=== PATIENT | female | born 1995 | race American Indian/Alaskan Native ===

== ENCOUNTER 2021-02-21 15:42 | Inpatient (IN) | payer OTHER ==
[2021-02-21 17:29] LABS: Hematocrit 35.1 % (30.3-42.9); Hemoglobin 11.6 gm/dl (10.1-14.3); Mean Corpuscular HGB Conc 33 % (30-34); Mean Corpuscular Volume 80 fl (79-97); Platelet Count 236 K/mm3 (140-440); Red Blood Count 4.38 M/mm3 (3.65-5.03); Red Cell Distribution Width 14.8 % (13.2-15.2)
[2021-02-21] MEDS ORDERED: ALBUTEROL 2.5 MG/3 ML NEBU IH ONE (17:40)
[2021-02-21 17:47] LABS: Alanine Aminotransferase 11 units/L (7-56); Uric Acid 7.4 mg/dL (3.5-7.6)
[2021-02-21] MEDS ORDERED: LACTATED RINGERS 500 ML IV ONE (17:51)
[2021-02-21] MEDS ORDERED: MAGNESIUM SULFATE 4 GM/100 ML BAG IV ONE (17:53)
[2021-02-21] MEDS ORDERED: BETAMET ACET/BETAMET NA PH 6 MG/ML INJ 5 ML MDV IM SCH (18:00)
[2021-02-21] MEDS: HYDROcodone/ACETAMINOPHEN 5-325 MG TAB PO PRN (18:12)
[2021-02-21] MEDS: hydrALAZINE 20 MG/1 ML INJ IV PRN ×3 (18:12→20:00)
[2021-02-21 18:40] LABS: Bilirubin,Urine NEG (Negative); Blood,Urine SM (Negative); Color,Urine Yellow (Yellow); Mucus,Urine FEW /HPF; Urobilinogen,Urine < 2.0 mg/dL (<2.0)
[2021-02-21 18:41] LABS: Protein,Urine >500 mg/dL (Negative)
--- NOTE | 2021-02-21 18:51 | Ultrasound Report ---
ULTRASOUND OBSTETRIC LIMITED ULTRASOUND BIOPHYSICAL PROFILE INDICATION / CLINICAL INFORMATION: wellbeing. COMPARISON: None available. FINDINGS: BREATHING MOVEMENT = 2 GROSS BODY MOVEMENT = 0 TONE = 2 QUALITATIVE AMNIOTIC FLUID VOLUME = 2 TOTAL BIOPHYSICAL SCORE = 6/8 AMNIOTIC FLUID INDEX (cm) = 7.1 PRESENTATION: Cephalic. HEART RATE (beats per minute): 146 ADDITIONAL FINDINGS: None. IMPRESSION: 1. Biophysical Score = 6/8 Signer Name: Jesús Ventura MD Signed: 02/21/2021 6:47 PM Workstation Name: [id number]
--- NOTE | 2021-02-21 21:11 | History and Physical Report ---
History of Present Illness Date of examination: 02/21/21 Date of admission: 02/21/21 16:51 Chief complaint: elevated blood pressure. History of present illness: Patient is a 25-year-old from [place] female primigravida last menstrual period 06/16/2020 EDC [id number]. She is 32 weeks . She does have several problems she is obese she has asthma controlled on albuterol her blood pressures have been elevated during this she has had a 24-hour urine was 83mg she has [facility] she has gestational diabetes controlled with diet only she has a history of herniated disc in her back being treated by orthopedic doctors. She is admitted today because of elevated blood pressure. At the office today her blood pressure was 185/106. She has a history of taking labetalol 200 mg p.o. twice daily daily at the office her blood type was A+ antibody screen was negative. Her Pap smear is nonimmune records her rubella was immune VDRL was nonreactive hepatitis B was negative HIV test was negative platelet count was 329,000 HSV 2 was negative gonorrhea and Chlamydia tests were negative trichomonas test was negative MSAFP was negative she had ultrasound at 6.4 weeks her hematocrit on 01/05/2021 was 36.4% . Her VDRL on 05/08/2021 was nonreactive HIV test on 01/05/2021 was also negative. Patient is several different medications during the . Family medical history shows a maternal grandmother had type 2 diabetes he has grandmother maternal aunt that had breast cancer. Past medical history also shows LGSIL on Pap smear she had a Nexplanon removed on 10/22/2016 she had a Nexplanon inserted in 2012. Menarche was [id number]. Social history shows shows that the patient is single and her weight is 271 pounds. History patient Steroids for the lung maturity this week before today. Patient is admitted for toxemia of possible induction of labor. She will be treated with magnesium sulfate. And will treat her with asthma which is a problem with respiratory therapy. Past History Past Medical History: asthma, diabetes, other (obesity, bulging disc in her back.) [employer] History: abnormal PAP smear Family/Genetic History: diabetes, cancer Social history: no significant social history - Obstetrical History Expected Date of Delivery: 04/14/21 Actual Gestation: 32 Week(s) 4 Day(s) : 1 Para: 0 Hx # Term Pregnancies: 0 Number of Pregnancies: 0 Spontaneous Abortions: 0 Induced : 0 Number of Living Children: 0 Medications and Allergies Allergies Allergy/AdvReac Type Severity Reaction Status Date / Time No Known Allergies Allergy Verified 02/19/21 17:49 Home Medications Medication Instructions Recorded Confirmed Last Taken Type Omeprazole 20 mg PO DAILY 02/21/21 02/21/21 02/20/21 History Vit-Fe Fumar-FA [ 1 tab PO QDAY 02/21/21 02/21/21 02/20/21 History Vitamin] labetaloL [Labetalol 200mg TAB] 200 mg PO BID 02/21/21 02/21/21 02/21/21 History Active Meds: Active Medications Hydrocodone Bitart/Acetaminophen (Hydrocodone/Acetaminophen 5-325 Mg Tab) 1 each PO Q4H PRN PRN Reason: Pain, Moderate (4-6) Last Admin: 02/21/21 18:12 Dose: 1 each Documented by: Albuterol (Albuterol 2.5 Mg/3 Ml Nebu) 2.5 mg IH TIDRT [facility] Betamethasone Acet/Betameth SodPhos (Betamet Acet/Betamet Na Ph 6 Mg/Ml Inj 5 Ml Mdv) 12 mg IM Q24H ONIEL Stop: 02/22/21 18:01 Hydralazine HCl (Hydralazine 20 Mg/1 Ml Inj) 10 mg IV Q30MIN PRN PRN Reason: Blood Pressure Last Admin: 02/21/21 20:00 Dose: 10 mg Documented by: Magnesium Sulfate (Magnesium Sulfate 40gm/1000ml) 40 gm in 1,000 mls @ 50 mls/hr IV DIRECT ONIEL Lactated Ringer's (Lactated Ringers) 1,000 mls @ 125 mls/hr IV DIRECT ONIEL Labetalol HCl (Labetalol 200 Mg Tab) 200 mg PO BID [facility] Multivitamins/Iron/Calcium ( [id number] Fumarate-Folic Acid Vit Tab) 1 each PO QDAY [facility] Review of Systems All systems: negative - Vital Signs Vital signs: Vital Signs Temp Pulse Resp BP Pulse Ox 98.5 F 85 20 223/112 99 02/21/21 16:06 02/21/21 16:06 02/21/21 16:06 02/21/21 16:06 02/21/21 16:06 Temp Pulse Resp BP Pulse Ox 98.5 F 114 H 18 129/72 99 02/21/21 16:06 02/21/21 20:59 02/21/21 18:15 02/21/21 20:58 02/21/21 20:59 - Physical Exam Breasts: Positive: deferred, normal Cardiovascular: Regular rate, Normal S1, Normal S2 Lungs: Positive: Clear to auscultation, Normal air movement Abdomen: Positive: normal appearance, soft, normal bowel sounds. Negative: distention, tenderness Genitourinary (Female): Positive: normal external genitalia Vulva: both: normal Vagina: Positive: normal moisture. Negative: discharge Cervix: Negative: lesion, discharge Uterus: Positive: normal size, enlarged, normal contour Adnexa: both: normal Anus/Rectum: Positive: normal perianal skin, heme negative. Negative: rectal mass, hemorrhoids Extremities: Positive: normal Deep Tendon Reflex Grade: Normal +2 - Obstetrical FHR: auscultation normal, category 1 Uterine Contraction Monitor Mode: Palpation Cervical Dilatation: 0 Cervical Effacement Percentage: 50 station: -2 Uterine Contraction Frequency (min): none Uterine Contraction Duration: na Uterine Contraction Pattern: Absent Uterine Tone Measurement Phase: Resting Results Result Diagrams: 02/21/21 17:00 02/21/21 17:00 Abnormal lab results 02/21/21 02/21/21 Range/Units 17:00 17:00 WBC 15.4 H (4.5-11.0) K/mm3 MCH 27 L (28-32) pg Creatinine 0.5 L (0.6-1.2) mg/dL Lactate Dehydrogenase 331 H (91-180) units/L All other labs normal. Assessment and Plan , Asthma gestational diabetes controlled with diet and herniated disc in her back.also, asthma. Plan stabilize the patient with magnesium sulfate IV and get better blood pressures. Possible induction in a.m.
[2021-02-22] MEDS ORDERED: MORPHINE 4 MG/1 ML INJ IV ONE (01:27)
[2021-02-22] MEDS ORDERED: AMPICILLIN/NS 2 GM/100 ML 2 GM/100 ML BAG IV ONE (03:42)
[2021-02-22] MEDS ORDERED: OXYTOCIN DRIP 30 UNITS/500 ML BAG IV SCH ×2 (04:00→18:00)
[2021-02-22] MEDS ORDERED: DINOPROSTONE 10 MG VAG SUPP VG ONE (04:01)
[2021-02-22] MEDS: ALBUTEROL 2.5 MG/3 ML NEBU IH SCH ×4 (04:52→21:33)
[2021-02-22] MEDS: MORPHINE 4 MG/1 ML INJ IV PRN ×2 (06:00→10:08)
[2021-02-22] MEDS ORDERED: ACETAMINOPHEN 500 MG TAB PO SCH (08:00)
[2021-02-22] MEDS ORDERED: ACETAMINOPHEN 500 MG TAB ONE (08:02)
[2021-02-22] MEDS: hydrALAZINE 20 MG/1 ML INJ IV PRN ×6 (08:07→22:54)
--- NOTE | 2021-02-22 09:38 | Consultation ---
Consult Note - Parent Education I met with parent(s) and discussed the following:: Need for NICU admission, Poss ible need for intubation and surfactant or other resp support, Temperature regulation, Head ultrasounds to evaluate IVH, Eye exams for ROP screening, Possible need for IV fluids/TPN and IV antibiotics, Possible need for umbilical lines, Importance of providing breast milk & encouraged pumping aft delivery (MOB is interested in ), Donor breast milk if baby meets criteria after , Slow feeding advancement and monitoring of tolerance. NG/OG feeds, Need to monitor for jaundice, Data for survival & survival without significant co-morbidities Parent(s) demonstrated understanding of all the information:: Yes Assessment and Plan - Assessment Gestation:: 32 Estimated Weight: N/A Baby's gender: Female Baby's name: Kenny Additional Comment: 25YO mother with 32 weeker, who presents with elevated blood pressure, GDM-diet controlled. She is currently on mag. and have received her 2nd dose of bethamethasone upon admission. - Plan Plan: Agree with Mag & steroids Will attend delivery Please call NICU with questions
[2021-02-22] MEDS: PRENATAL VIT27-FE FUMARATE-FOLIC ACID VIT TAB PO SCH (10:07)
--- NOTE | 2021-02-22 14:44 | Progress Note ---
Assessment and Plan , Asthma gestational diabetes controlled with diet and herniated disc in her back.also, asthma. Plan stabilize the patient with magnesium sulfate IV and get better blood pressures. Possible induction in a.m. INDUCTION WITH CERVIDIL TODAY, - Patient Problems (1) Toxemia in Current Visit: Yes Status: Acute (2) Obesity (BMI 30-39.9) Current Visit: Yes Status: Acute (3) Asthma Current Visit: Yes Status: Acute (4) Herniated intervertebral disc of lumbar spine Current Visit: Yes Status: Chronic Subjective Date of service: 02/22/21 Principal diagnosis: 32 weeks IUP,SEVERE TOXEMIA, OBESITY, GEST DM, HERNIATED DISC LOWER BACK Interval history: This patient has all of the above diagnoses and she has had antepartum steroids to benefit the baby this week. Because of her significantly elevated blood pressures and her obesity and gestational diabetes with the toxemia is felt that patient is best served with a induction of labor at this time. We will start with Cervidil and then progressed with IV Pitocin. Objective - Constitutional Vitals: Vital Signs - 12hr 02/22/21 02/22/21 02/22/21 02:43 02:44 02:49 Temperature Pulse Rate 111 H 110 H 109 H Pulse Rate [ Bilateral] Respiratory Rate Respiratory Rate [Bilateral ] Blood Pressure Blood Pressure [Left] O2 Sat by Pulse 93 92 91 Oximetry 02/22/21 02/22/21 02/22/21 02:54 02:55 02:59 Temperature Pulse Rate 108 H 108 H 113 H Pulse Rate [ Bilateral] Respiratory Rate Respiratory Rate [Bilateral ] Blood Pressure 139/69 Blood Pressure [Left] O2 Sat by Pulse 91 97 Oximetry 02/22/21 02/22/21 02/22/21 03:04 03:09 03:14 Temperature Pulse Rate 107 H 108 H 108 H Pulse Rate [ Bilateral] Respiratory Rate Respiratory Rate [Bilateral ] Blood Pressure Blood Pressure [Left] O2 Sat by Pulse 98 94 96 Oximetry 02/22/21 02/22/21 02/22/21 03:16 03:19 03:24 Temperature Pulse Rate 108 H 109 H 118 H Pulse Rate [ Bilateral] Respiratory Rate Respiratory Rate [Bilateral ] Blood Pressure Blood Pressure [Left] O2 Sat by Pulse 94 92 95 Oximetry 02/22/21 02/22/21 02/22/21 03:25 03:29 03:32 Temperature Pulse Rate 111 H 107 H 104 H Pulse Rate [ Bilateral] Respiratory Rate Respiratory Rate [Bilateral ] Blood Pressure 135/62 Blood Pressure [Left] O2 Sat by Pulse 95 94 Oximetry 02/22/21 02/22/21 02/22/21 03:34 03:39 03:44 Temperature Pulse Rate 104 H 105 H 109 H Pulse Rate [ Bilateral] Respiratory Rate Respiratory Rate [Bilateral ] Blood Pressure Blood Pressure [Left] O2 Sat by Pulse 93 93 94 Oximetry 02/22/21 02/22/21 02/22/21 03:49 03:51 03:54 Temperature Pulse Rate 107 H 107 H 111 H Pulse Rate [ Bilateral] Respiratory Rate Respiratory Rate [Bilateral ] Blood Pressure Blood Pressure [Left] O2 Sat by Pulse 94 94 96 Oximetry 02/22/21 02/22/21 02/22/21 03:55 03:59 04:04 Temperature Pulse Rate 109 H 106 H 109 H Pulse Rate [ Bilateral] Respiratory Rate Respiratory Rate [Bilateral ] Blood Pressure 135/63 Blood Pressure [Left] O2 Sat by Pulse 95 95 Oximetry 02/22/21 02/22/21 02/22/21 04:09 04:14 04:19 Temperature Pulse Rate 107 H 111 H 107 H Pulse Rate [ Bilateral] Respiratory Rate Respiratory Rate [Bilateral ] Blood Pressure Blood Pressure [Left] O2 Sat by Pulse 96 96 97 Oximetry 02/22/21 02/22/21 02/22/21 04:24 04:29 04:31 Temperature Pulse Rate 110 H 107 H 108 H Pulse Rate [ Bilateral] Respiratory Rate Respiratory Rate [Bilateral ] Blood Pressure 143/66 Blood Pressure [Left] O2 Sat by Pulse 98 98 Oximetry 02/22/21 02/22/21 02/22/21 04:34 04:39 04:44 Temperature Pulse Rate 110 H 109 H 109 H Pulse Rate [ Bilateral] Respiratory Rate Respiratory Rate [Bilateral ] Blood Pressure Blood Pressure [Left] O2 Sat by Pulse 98 98 98 Oximetry 02/22/21 02/22/21 02/22/21 04:49 04:53 04:54 Temperature Pulse Rate 112 H 109 H Pulse Rate [ 108 H Bilateral] Respiratory Rate Respiratory 18 Rate [Bilateral ] Blood Pressure Blood Pressure [Left] O2 Sat by Pulse 97 99 Oximetry 02/22/21 02/22/21 02/22/21 04:55 04:59 05:04 Temperature Pulse Rate 107 H 113 H 107 H Pulse Rate [ Bilateral] Respiratory Rate Respiratory Rate [Bilateral ] Blood Pressure 146/74 Blood Pressure [Left] O2 Sat by Pulse 98 98 Oximetry 02/22/21 02/22/21 02/22/21 05:09 05:14 05:19 Temperature Pulse Rate 116 H 109 H 112 H Pulse Rate [ Bilateral] Respiratory Rate Respiratory Rate [Bilateral ] Blood Pressure Blood Pressure [Left] O2 Sat by Pulse 98 98 98 Oximetry 02/22/21 02/22/21 02/22/21 05:24 05:26 05:29 Temperature Pulse Rate 111 H 109 H 114 H Pulse Rate [ Bilateral] Respiratory Rate Respiratory Rate [Bilateral ] Blood Pressure 171/77 Blood Pressure [Left] O2 Sat by Pulse 98 99 Oximetry 02/22/21 02/22/21 02/22/21 05:34 05:39 05:44 Temperature Pulse Rate 109 H 110 H 111 H Pulse Rate [ Bilateral] Respiratory Rate Respiratory Rate [Bilateral ] Blood Pressure Blood Pressure [Left] O2 Sat by Pulse 98 98 96 Oximetry 02/22/21 02/22/21 02/22/21 05:48 05:49 05:53 Temperature Pulse Rate 110 H 110 H 113 H Pulse Rate [ Bilateral] Respiratory Rate Respiratory Rate [Bilateral ] Blood Pressure Blood Pressure [Left] O2 Sat by Pulse 94 94 94 Oximetry 02/22/21 02/22/21 02/22/21 05:54 05:59 06:04 Temperature Pulse Rate 114 H 111 H 111 H Pulse Rate [ Bilateral] Respiratory Rate Respiratory Rate [Bilateral ] Blood Pressure Blood Pressure [Left] O2 Sat by Pulse 93 93 91 Oximetry 02/22/21 02/22/21 02/22/21 06:09 06:14 06:19 Temperature Pulse Rate 110 H 109 H 110 H Pulse Rate [ Bilateral] Respiratory Rate Respiratory Rate [Bilateral ] Blood Pressure Blood Pressure [Left] O2 Sat by Pulse 90 89 90 Oximetry 02/22/21 02/22/21 02/22/21 06:24 06:29 06:34 Temperature Pulse Rate 109 H 110 H 117 H Pulse Rate [ Bilateral] Respiratory Rate Respiratory Rate [Bilateral ] Blood Pressure Blood Pressure [Left] O2 Sat by Pulse 87 89 95 Oximetry 02/22/21 02/22/21 02/22/21 06:35 06:39 06:44 Temperature Pulse Rate 114 H 107 H 109 H Pulse Rate [ Bilateral] Respiratory Rate Respiratory Rate [Bilateral ] Blood Pressure Blood Pressure [Left] O2 Sat by Pulse 94 93 90 Oximetry 02/22/21 02/22/21 02/22/21 06:49 06:50 06:54 Temperature Pulse Rate 107 H 108 H 107 H Pulse Rate [ Bilateral] Respiratory Rate Respiratory Rate [Bilateral ] Blood Pressure Blood Pressure [Left] O2 Sat by Pulse 95 94 94 Oximetry 02/22/21 02/22/21 02/22/21 06:56 06:57 06:59 Temperature Pulse Rate 107 H 106 H 105 H Pulse Rate [ Bilateral] Respiratory Rate Respiratory Rate [Bilateral ] Blood Pressure 171/84 Blood Pressure [Left] O2 Sat by Pulse 94 93 Oximetry 02/22/21 02/22/21 02/22/21 07:04 07:09 07:14 Temperature Pulse Rate 109 H 107 H 117 H Pulse Rate [ Bilateral] Respiratory Rate Respiratory Rate [Bilateral ] Blood Pressure 179/101 Blood Pressure [Left] O2 Sat by Pulse 95 96 98 Oximetry 02/22/21 02/22/21 02/22/21 07:15 07:16 07:19 Temperature 98.9 F Pulse Rate 107 H 110 H 109 H Pulse Rate [ Bilateral] Respiratory Rate Respiratory Rate [Bilateral ] Blood Pressure 156/78 Blood Pressure 156/78 [Left] O2 Sat by Pulse 96 Oximetry 02/22/21 02/22/21 02/22/21 07:24 07:29 07:34 Temperature Pulse Rate 107 H 107 H 107 H Pulse Rate [ Bilateral] Respiratory Rate Respiratory Rate [Bilateral ] Blood Pressure Blood Pressure [Left] O2 Sat by Pulse 97 97 96 Oximetry 02/22/21 02/22/21 02/22/21 07:38 07:39 07:44 Temperature Pulse Rate 105 H 108 H 106 H Pulse Rate [ Bilateral] Respiratory Rate Respiratory Rate [Bilateral ] Blood Pressure Blood Pressure [Left] O2 Sat by Pulse 94 93 94 Oximetry 02/22/21 02/22/21 02/22/21 07:49 07:54 07:57 Temperature Pulse Rate 107 H 113 H 110 H Pulse Rate [ Bilateral] Respiratory Rate Respiratory Rate [Bilateral ] Blood Pressure 162/79 Blood Pressure [Left] O2 Sat by Pulse 92 96 Oximetry 02/22/21 02/22/21 02/22/21 07:59 08:04 08:09 Temperature Pulse Rate 107 H 107 H 107 H Pulse Rate [ Bilateral] Respiratory Rate Respiratory Rate [Bilateral ] Blood Pressure Blood Pressure [Left] O2 Sat by Pulse 96 94 96 Oximetry 02/22/21 02/22/21 02/22/21 08:14 08:19 08:24 Temperature Pulse Rate 112 H 106 H 107 H Pulse Rate [ Bilateral] Respiratory Rate Respiratory Rate [Bilateral ] Blood Pressure Blood Pressure [Left] O2 Sat by Pulse 96 96 96 Oximetry 02/22/21 02/22/21 02/22/21 08:25 08:27 08:29 Temperature Pulse Rate 109 H 108 H 109 H Pulse Rate [ Bilateral] Respiratory Rate Respiratory Rate [Bilateral ] Blood Pressure 141/91 Blood Pressure [Left] O2 Sat by Pulse 94 96 Oximetry 02/22/21 02/22/21 02/22/21 08:34 08:39 08:44 Temperature Pulse Rate 107 H 103 H 103 H Pulse Rate [ Bilateral] Respiratory Rate Respiratory Rate [Bilateral ] Blood Pressure Blood Pressure [Left] O2 Sat by Pulse 97 97 96 Oximetry 02/22/21 02/22/21 02/22/21 08:46 08:49 08:54 Temperature Pulse Rate 102 H 107 H 110 H Pulse Rate [ Bilateral] Respiratory Rate Respiratory Rate [Bilateral ] Blood Pressure 147/70 Blood Pressure [Left] O2 Sat by Pulse 96 97 Oximetry 02/22/21 02/22/21 02/22/21 08:55 08:59 09:04 Temperature Pulse Rate 110 H 112 H 110 H Pulse Rate [ Bilateral] Respiratory Rate Respiratory Rate [Bilateral ] Blood Pressure 158/78 Blood Pressure [Left] O2 Sat by Pulse 97 95 Oximetry 02/22/21 02/22/21 02/22/21 09:06 09:09 09:12 Temperature Pulse Rate 109 H 110 H 110 H Pulse Rate [ Bilateral] Respiratory Rate Respiratory Rate [Bilateral ] Blood Pressure Blood Pressure [Left] O2 Sat by Pulse 94 95 94 Oximetry 02/22/21 02/22/21 02/22/21 09:14 09:19 09:24 Temperature Pulse Rate 108 H 116 H 113 H Pulse Rate [ Bilateral] Respiratory Rate Respiratory Rate [Bilateral ] Blood Pressure Blood Pressure [Left] O2 Sat by Pulse 94 92 97 Oximetry 02/22/21 02/22/21 02/22/21 09:25 09:29 09:34 Temperature Pulse Rate 113 H 117 H 115 H Pulse Rate [ Bilateral] Respiratory Rate Respiratory Rate [Bilateral ] Blood Pressure 147/81 Blood Pressure [Left] O2 Sat by Pulse 98 98 Oximetry 02/22/21 02/22/21 02/22/21 09:39 09:44 09:49 Temperature Pulse Rate 113 H 107 H 109 H Pulse Rate [ Bilateral] Respiratory Rate Respiratory Rate [Bilateral ] Blood Pressure Blood Pressure [Left] O2 Sat by Pulse 98 98 97 Oximetry 02/22/21 02/22/21 02/22/21 09:54 09:55 09:59 Temperature Pulse Rate 111 H 113 H 113 H Pulse Rate [ Bilateral] Respiratory Rate Respiratory Rate [Bilateral ] Blood Pressure 136/79 Blood Pressure [Left] O2 Sat by Pulse 98 98 Oximetry 02/22/21 02/22/21 02/22/21 10:04 10:07 10:09 Temperature Pulse Rate 108 H 109 H 117 H Pulse Rate [ Bilateral] Respiratory Rate Respiratory Rate [Bilateral ] Blood Pressure 136/79 Blood Pressure [Left] O2 Sat by Pulse 96 97 Oximetry 02/22/21 02/22/21 02/22/21 10:14 10:19 10:24 Temperature Pulse Rate 112 H 110 H 108 H Pulse Rate [ Bilateral] Respiratory Rate Respiratory Rate [Bilateral ] Blood Pressure Blood Pressure [Left] O2 Sat by Pulse 98 98 98 Oximetry 02/22/21 02/22/21 02/22/21 10:25 10:29 10:34 Temperature Pulse Rate 106 H 108 H 107 H Pulse Rate [ Bilateral] Respiratory Rate Respiratory Rate [Bilateral ] Blood Pressure 147/80 Blood Pressure [Left] O2 Sat by Pulse 96 97 Oximetry 02/22/21 02/22/21 02/22/21 10:39 10:44 10:49 Temperature Pulse Rate 105 H 105 H 102 H Pulse Rate [ Bilateral] Respiratory Rate Respiratory Rate [Bilateral ] Blood Pressure Blood Pressure [Left] O2 Sat by Pulse 97 98 98 Oximetry 02/22/21 02/22/21 02/22/21 10:54 10:55 10:59 Temperature Pulse Rate 103 H 103 H 106 H Pulse Rate [ Bilateral] Respiratory Rate Respiratory Rate [Bilateral ] Blood Pressure 130/70 Blood Pressure [Left] O2 Sat by Pulse 97 98 Oximetry 02/22/21 02/22/21 02/22/21 11:04 11:09 11:14 Temperature Pulse Rate 108 H 104 H 105 H Pulse Rate [ Bilateral] Respiratory Rate Respiratory Rate [Bilateral ] Blood Pressure Blood Pressure [Left] O2 Sat by Pulse 97 97 97 Oximetry 02/22/21 02/22/21 02/22/21 11:19 11:24 11:26 Temperature Pulse Rate 104 H 105 H 103 H Pulse Rate [ Bilateral] Respiratory Rate Respiratory Rate [Bilateral ] Blood Pressure 162/92 Blood Pressure [Left] O2 Sat by Pulse 98 98 Oximetry 02/22/21 02/22/21 02/22/21 11:29 11:34 11:39 Temperature Pulse Rate 104 H 104 H 102 H Pulse Rate [ Bilateral] Respiratory Rate Respiratory Rate [Bilateral ] Blood Pressure Blood Pressure [Left] O2 Sat by Pulse 97 98 97 Oximetry 02/22/21 02/22/21 02/22/21 11:44 11:49 11:51 Temperature Pulse Rate 103 H 101 H 101 H Pulse Rate [ Bilateral] Respiratory Rate Respiratory Rate [Bilateral ] Blood Pressure 181/106 Blood Pressure [Left] O2 Sat by Pulse 98 98 Oximetry 02/22/21 02/22/21 02/22/21 11:54 11:55 11:57 Temperature 98.1 F Pulse Rate 104 H 102 H 102 H Pulse Rate [ Bilateral] Respiratory 17 Rate Respiratory Rate [Bilateral ] Blood Pressure 182/109 170/90 Blood Pressure 181/106 [Left] O2 Sat by Pulse 95 98 Oximetry 02/22/21 02/22/21 02/22/21 11:59 12:02 12:04 Temperature Pulse Rate 102 H 104 H 104 H Pulse Rate [ Bilateral] Respiratory Rate Respiratory Rate [Bilateral ] Blood Pressure 159/84 Blood Pressure [Left] O2 Sat by Pulse 98 97 Oximetry 02/22/21 02/22/21 02/22/21 12:07 12:09 12:14 Temperature Pulse Rate 107 H 105 H 107 H Pulse Rate [ Bilateral] Respiratory Rate Respiratory Rate [Bilateral ] Blood Pressure 156/81 Blood Pressure [Left] O2 Sat by Pulse 97 97 Oximetry 02/22/21 02/22/21 02/22/21 12:18 12:19 12:24 Temperature Pulse Rate 106 H 108 H 109 H Pulse Rate [ Bilateral] Respiratory Rate Respiratory Rate [Bilateral ] Blood Pressure 157/83 Blood Pressure [Left] O2 Sat by Pulse 98 98 Oximetry 02/22/21 02/22/21 02/22/21 12:29 12:33 12:34 Temperature Pulse Rate 108 H 108 H 107 H Pulse Rate [ Bilateral] Respiratory Rate Respiratory Rate [Bilateral ] Blood Pressure 157/86 Blood Pressure [Left] O2 Sat by Pulse 98 97 Oximetry 02/22/21 02/22/21 02/22/21 12:35 12:38 12:39 Temperature Pulse Rate 107 H 109 H 109 H Pulse Rate [ Bilateral] Respiratory Rate Respiratory Rate [Bilateral ] Blood Pressure 156/84 156/84 Blood Pressure [Left] O2 Sat by Pulse 97 Oximetry 02/22/21 02/22/21 02/22/21 12:44 12:48 12:49 Temperature Pulse Rate 107 H 106 H 107 H Pulse Rate [ Bilateral] Respiratory Rate Respiratory Rate [Bilateral ] Blood Pressure 156/80 Blood Pressure [Left] O2 Sat by Pulse 96 95 Oximetry 02/22/21 02/22/21 02/22/21 12:51 12:54 12:57 Temperature Pulse Rate 107 H 106 H 108 H Pulse Rate [ Bilateral] Respiratory Rate Respiratory Rate [Bilateral ] Blood Pressure Blood Pressure [Left] O2 Sat by Pulse 94 96 94 Oximetry 02/22/21 02/22/21 02/22/21 12:59 13:03 13:04 Temperature Pulse Rate 109 H 107 H 107 H Pulse Rate [ Bilateral] Respiratory Rate Respiratory Rate [Bilateral ] Blood Pressure 148/75 Blood Pressure [Left] O2 Sat by Pulse 97 96 Oximetry 02/22/21 02/22/21 02/22/21 13:09 13:14 13:19 Temperature Pulse Rate 109 H 108 H 108 H Pulse Rate [ Bilateral] Respiratory Rate Respiratory Rate [Bilateral ] Blood Pressure Blood Pressure [Left] O2 Sat by Pulse 95 96 97 Oximetry 02/22/21 02/22/21 02/22/21 13:24 13:28 13:29 Temperature Pulse Rate 106 H 105 H 107 H Pulse Rate [ Bilateral] Respiratory Rate Respiratory Rate [Bilateral ] Blood Pressure 136/74 Blood Pressure [Left] O2 Sat by Pulse 97 97 Oximetry 02/22/21 02/22/21 02/22/21 13:33 13:34 13:39 Temperature Pulse Rate 105 H 103 H 105 H Pulse Rate [ Bilateral] Respiratory Rate Respiratory Rate [Bilateral ] Blood Pressure 154/74 Blood Pressure [Left] O2 Sat by Pulse 92 96 94 Oximetry 02/22/21 02/22/21 02/22/21 13:44 13:48 13:49 Temperature Pulse Rate 105 H 108 H 108 H Pulse Rate [ Bilateral] Respiratory Rate Respiratory Rate [Bilateral ] Blood Pressure 148/69 Blood Pressure [Left] O2 Sat by Pulse 95 94 96 Oximetry 02/22/21 02/22/21 02/22/21 13:54 13:59 14:01 Temperature Pulse Rate 106 H 105 H 105 H Pulse Rate [ Bilateral] Respiratory Rate Respiratory Rate [Bilateral ] Blood Pressure Blood Pressure [Left] O2 Sat by Pulse 95 95 94 Oximetry 02/22/21 02/22/21 02/22/21 14:03 14:04 14:06 Temperature Pulse Rate 106 H 105 H 105 H Pulse Rate [ Bilateral] Respiratory Rate Respiratory Rate [Bilateral ] Blood Pressure 165/74 Blood Pressure [Left] O2 Sat by Pulse 94 94 Oximetry 02/22/21 02/22/21 02/22/21 14:09 14:14 14:19 Temperature Pulse Rate 106 H 110 H 108 H Pulse Rate [ Bilateral] Respiratory Rate Respiratory Rate [Bilateral ] Blood Pressure 160/76 Blood Pressure [Left] O2 Sat by Pulse 94 97 96 Oximetry 02/22/21 02/22/21 02/22/21 14:24 14:29 14:34 Temperature Pulse Rate 112 H 109 H 116 H Pulse Rate [ Bilateral] Respiratory Rate Respiratory Rate [Bilateral ] Blood Pressure 165/78 Blood Pressure [Left] O2 Sat by Pulse 96 97 96 Oximetry General appearance: Present: no acute distress, well-nourished - Genitourinary Female genitourinary: other (CX CLOSED, VTX, -2, 50%) - Labs CBC & Chem 7: 02/21/21 17:00 02/21/21 17:00 Labs: Abnormal lab results 02/21/21 02/21/21 02/22/21 Range/Units 17:00 17:00 00:18 WBC 15.4 H (4.5-11.0) K/mm3 MCH 27 L (28-32) pg Creatinine 0.5 L (0.6-1.2) mg/dL Magnesium 4.40 H (1.7-2.3) mg/dL Lactate Dehydrogenase 331 H (91-180) units/L 02/22/21 Range/Units 08:30 WBC (4.5-11.0) K/mm3 MCH (28-32) pg Creatinine (0.6-1.2) mg/dL Magnesium 5.20 H (1.7-2.3) mg/dL Lactate Dehydrogenase (91-180) units/L Medications & Allergies - Medications Allergies/Adverse Reactions: Allergies No Known Allergies Allergy (Verified 02/19/21 17:49) Home Medications: Home Medications Medication Instructions Recorded Confirmed Last Taken Type Omeprazole 20 mg PO DAILY 02/21/21 02/21/21 02/20/21 History Vit-Fe Fumar-FA [ 1 tab PO QDAY 02/21/21 02/21/21 02/20/21 History Vitamin] labetaloL [Labetalol 200mg TAB] 200 mg PO BID 02/21/21 02/21/21 02/21/21 History Active Medications: Generic Name Dose Route Start Last Admin Trade Name Freq PRN Reason Stop Dose Admin Hydrocodone Bitart/Acetaminophen 1 each 02/21/21 16:53 02/21/21 18:12 Hydrocodone/Acetaminophen 5-325 Mg Tab PO 1 each Q4H PRN Administration Pain, Moderate (4-6) Albuterol 2.5 mg 02/21/21 20:00 02/22/21 07:06 Albuterol 2.5 Mg/3 Ml Nebu IH Not Given TIDRT ONIEL Betamethasone Acet/Betameth SodPhos 12 mg 02/21/21 18:00 Betamet Acet/Betamet Na Ph 6 Mg/Ml Inj 5 Ml Mdv IM 02/22/21 18:01 Q24H ONIEL Hydralazine HCl 10 mg 02/21/21 16:53 02/22/21 12:38 Hydralazine 20 Mg/1 Ml Inj IV 10 mg Q30MIN PRN Administration Blood Pressure Magnesium Sulfate 40 gm in 1,000 mls @ 50 mls/hr 02/21/21 18:00 Magnesium Sulfate 40gm/1000ml IV DIRECT ONIEL 2 GM/HR Lactated Ringer's 1,000 mls @ 125 mls/hr 02/21/21 21:00 Lactated Ringers IV DIRECT ONIEL Oxytocin/Sodium Chloride 30 units in 500 mls @ 2 mls/hr 02/22/21 04:00 Pitocin/Ns 30 Unit/500ml IV TITR ONIEL Protocol Labetalol HCl 200 mg 02/21/21 22:00 02/22/21 10:07 Labetalol 200 Mg Tab PO 200 mg BID ONIEL Administration Morphine Sulfate 4 mg 02/22/21 03:41 07/09/21 10:08 Morphine 4 Mg/1 Ml Inj IV 4 mg Q4H PRN Administration Pain , Severe (7-10) Multivitamins/Iron/Calcium 1 each 02/22/21 10:00 02/22/21 10:07 [id number] Fumarate-Folic Acid Vit Tab PO 1 each QDAY ONIEL Administration
[2021-02-22] MEDS ORDERED: METOCLOPRAMIDE 10 MG/2 ML INJ IV SCH (15:00)
[2021-02-22] MEDS ORDERED: FAMOTIDINE 20 MG/2 ML INJ IV SCH (15:00)
[2021-02-22] MEDS ORDERED: BICITRA ORAL LIQD 30ML PO SCH (15:00)
[2021-02-22] MEDS ORDERED: BICITRA ORAL LIQD 30ML ONE (15:10)
[2021-02-22] MEDS ORDERED: METOCLOPRAMIDE 10 MG/2 ML INJ ONE (15:10)
[2021-02-22] MEDS ORDERED: FAMOTIDINE 20 MG/2 ML INJ IV ONE (15:10)
--- NOTE | 2021-02-22 15:17 | Anesthesia Consultation ---
Anesthesia Consult and Med Hx Date of service: 02/22/21 - Airway Anesthetic Teeth Evaluation: Good ROM Head & Neck: Adequate Mental/Hyoid Distance: Adequate Mallampati Class: Class II Intubation Access Assessment: Probably Good - Pulmonary Exam CTA: Yes - Cardiac Exam Cardiac Exam: RRR - Pre-Operative Health Status ASA Pre-Surgery Classification: ASA3 Proposed Anesthetic Plan: Spinal - Pulmonary Hx Asthma: Yes (last attack 1 yr ago) COPD: No Hx Pneumonia: No - Cardiovascular System Hx Hypertension: Yes (PIH) - Central Nervous System Hx Seizures: No Hx Psychiatric Problems: No - Endocrine Hx Renal Disease: No Hx End Stage Renal Disease: No Hx Hypothyroidism: No Hx Hyperthyroidism: No - Hematic Hx Anemia: No Hx Sickle Cell Disease: No - Other Systems Hx Alcohol Use: No Hx Obesity: Yes
[2021-02-22] MEDS ORDERED: ceFAZolin/Water 2 GM/20 ML 2 GM/20 ML SYRINGE IV ONE (15:48)
[2021-02-22 15:57] LABS: Hematocrit 35.4 % (30.3-42.9); Hemoglobin 11.7 gm/dl (10.1-14.3); Mean Corpuscular HGB Conc 33 % (30-34); Mean Corpuscular Volume 80 fl (79-97); Red Cell Distribution Width 15.2 % (13.2-15.2)
[2021-02-22 15:58] LABS: Platelet Count 96 K/mm3 (140-440)
[2021-02-22] MEDS ORDERED: SODIUM CHLORIDE 0.9% 500 ML 500 ML IV ONE (17:00)
[2021-02-22] MEDS ORDERED: LANOLIN/ZINC/DIMETHICONE (LANSINOH) 7 GM TP PRN (17:42)
[2021-02-22] MEDS ORDERED: NALOXONE 0.4 MG/1 ML INJ IV PRN (17:42)
[2021-02-22] MEDS ORDERED: WITCH HAZEL/ GLYCERIN PAD TP PRN (17:42)
[2021-02-22] MEDS ORDERED: HYDROCORTISONE 25 MG RECTAL SUPP PR PRN (17:42)
[2021-02-22] MEDS ORDERED: ONDANSETRON 4 MG/2 ML INJ IV PRN (17:42)
--- NOTE | 2021-02-22 17:57 | Procedure Note ---
Date of procedure: 02/22/21 Pre-op diagnosis: 32 weeeks iup, toxemia severe, obesity, gest dm, herniated disc Post-op diagnosis: same Procedure: This is Dr. Flood dictating operative report on this patient. Preoperative diagnosis 32-week intrauterine severe toxemia gestational diabetes, herniated disc, asthma. Postop diagnosis same Procedure was a primary low transverse section. Anesthesia spinal. Estimated blood loss 250cc Liveborn female weight 3 pounds, Apgars 7 and 8. IV fluids 1800. Urine output 100 cc. Complications none. Drains Ferraro. The patient was taken to the section room she was already had an indwelling Ferraro catheter. She was then given a spinal anesthetic adequate enough for the procedure she was in prepped and draped in usual fashion. We then created a Pfannenstiel incision in the lower abdomen with a scalpel we entered the abdominal cavity anatomically vesicouterine peritoneum was opened with Metzenbaums and pickups smooth. The uterine incision was opened with scalpel and fetus in occiput anterior presentation was then delivered without incident and we used a Kiwi vacuum to help deliver the baby's vertex. The oropharynx was suctioned and nasopharynx was suctioned. Baby was handed off to the nurses from the intensive care nursery. Cord blood was obtained the placenta was then delivered in toto. And sent for pathological inspection. The uterus was delivered from the abdominal cavity and the inside of the uterus was cleaned of debris membranes tissue and clots subsequently the uterine incision was repaired in 2 layers first layer was in deep myometrium using running 0 chromic in a locking fashion second layer was superficial myometrium was then running 2-0 chromic in a locking fashion this uterine peritoneum was repaired with running 2-0 chromic on GI needle. Tubes and ovaries appeared to be normal there were no adhesions in the pelvis. The uterus was dropped back into the abdominal cavity. All instruments removed from abdominal care instrument count needle lap sponge count was correct anterior abdominal peritoneum was repaired running 2-0 chromic fascia repaired running locking 0 Vicryl and locked in a locking fashion. The subcutaneous neck was closed with running 2-0 chromic. The skin was doing great with Dermabond the patient tolerated procedure well she was then returned to recovery room in stable condition. Anesthesia: spinal Surgeon: FRANNY FLOOD Estimated blood loss: other (250ccs) IV fluids: 1,800 Urine output: 100 Pathology: list (placenta and cord) Specimen disposition: to lab Condition: stable Disposition: PACU
[2021-02-22] MEDS: LACTATED RINGERS 1,000 ML IV SCH (18:00)
[2021-02-22] MEDS: MAGNESIUM SULFATE 40GM/1000ML 40 GM/1,000 ML BAG IV SCH (18:00)
--- NOTE | 2021-02-22 18:20 | Progress Note ---
Regional Anesthesia Block - Regional Anesthesia Block Start Time: 17:55 Stop Time: 18:00 Performed By:: BAKARI UPTON Procedure: U/S guided bilateral tap block performed for post-operative pain requested by Dr. Mcgrath. H&P & labs reviewed. Procedure explained, questions answered, consent obtained. Patient in the supine position with ekg, blood pressure cuff and pulse ox on and working in PACU. Timeout performed immediately before start of procedure. Probe placed in the mid-axillary line and the external oblique, internal oblique, and transverse abdominus muscles identified. Skin was cleansed with chlorahexadine 0.5% and allowed to dry. A 4" 20 G Steele echogenic needle was advanced in plane until the tip was in the fascial plane between the internal oblique and the transverse abdominus. After negative aspiration 35 ml/side of [30 ml 0.5% Bupivacaine], [10 mg dexamethasone], and [40 ml sterile saline] was injected in 5 ml increments with negative aspiration in between. Patient tolerated procedure well. Jozef OLIVER
[2021-02-23] MEDS: HYDROcodone/ACETAMINOPHEN 5-325 MG TAB PO PRN ×3 (02:45→18:11)
[2021-02-23] MEDS: hydrALAZINE 20 MG/1 ML INJ IV PRN ×2 (02:47→03:24)
[2021-02-23 06:15] LABS: Hematocrit 32.8 % (30.3-42.9); Hemoglobin 10.9 gm/dl (10.1-14.3)
[2021-02-23] MEDS: LACTATED RINGERS 1,000 ML IV SCH (07:56)
[2021-02-23] MEDS: MAGNESIUM SULFATE 40GM/1000ML 40 GM/1,000 ML BAG IV SCH (07:57)
--- NOTE | 2021-02-23 08:17 | Progress Note ---
Assessment and Plan A: /postop day 1 S/P primary low transverse section. Preeclampsia with severe features (on magnesium sulfate and Labetalol 300 mg po BID). Obesity. Gestational diabetes. Asthma (not symptomatic). Anemia. P: Nurse to recheck patient's blood pressure and notify provider. Continue Magnesium Sulfate. Continue Labetalol 300 mg po BID. Pain medication as needed. SCDs. Iron supplementation. Will consult with re: this patient. Subjective - Subjective Date of service: 02/23/21 Principal diagnosis: /postop day 1 S/P primary LTCS; severe preeclampsia Interval history: Patient denies headache, visual disturbance, nausea or vomiting. Receiving magnesium sulfate due to preeclampsia with severe features. Receiving Labetalol 300 mg po BID. Nurse states patient was in pain and BPs went up slightly. Nurse plans to recheck patient's blood pressure shortly. Patient reports: appetite normal, no flatus, no bowel movement, no nauseated [place]: in NICU Objective - Vital Signs Latest vital signs: Vital Signs Temp Pulse Pulse Resp Resp BP BP 02/23/21 08:12 95 H 02/23/21 08:07 95 H 02/23/21 08:02 95 H 02/23/21 07:57 95 H 02/23/21 07:55 18 02/23/21 07:52 93 H 02/23/21 07:48 93 H 164/92 02/23/21 07:47 94 H 02/23/21 07:42 94 H 02/23/21 07:37 93 H 02/23/21 07:32 92 H 02/23/21 07:27 91 H 02/23/21 07:26 97.8 F 18 02/23/21 07:22 94 H 02/23/21 07:20 95 H 157/93 02/23/21 07:18 93 H 160/93 02/23/21 07:17 93 H 02/23/21 07:12 96 H 02/23/21 07:07 96 H 02/23/21 07:02 91 H 02/23/21 06:57 92 H 02/23/21 06:52 95 H 02/23/21 06:47 95 H 143/90 02/23/21 06:42 96 H 02/23/21 06:37 95 H 02/23/21 06:32 96 H 02/23/21 06:31 95 H 141/86 02/23/21 06:27 95 H 02/23/21 06:22 95 H 02/23/21 06:17 94 H 02/23/21 06:12 96 H 02/23/21 06:07 96 H 02/23/21 06:02 100 H 02/23/21 05:57 102 H 02/23/21 05:52 96 H 02/23/21 05:47 91 H 128/71 02/23/21 05:42 95 H 02/23/21 05:40 94 H 02/23/21 05:37 97 H 02/23/21 05:32 90 02/23/21 05:27 91 H 02/23/21 05:26 94 H 02/23/21 05:22 93 H 02/23/21 05:21 98 H 02/23/21 05:17 95 H 131/71 02/23/21 05:12 94 H 02/23/21 05:07 96 H 02/23/21 05:02 94 H 02/23/21 04:57 92 H 02/23/21 04:52 94 H 02/23/21 04:47 96 H 132/71 02/23/21 04:42 93 H 02/23/21 04:37 93 H 02/23/21 04:32 93 H 02/23/21 04:31 98 H 02/23/21 04:27 95 H 02/23/21 04:22 94 H 02/23/21 04:17 98 H 129/73 02/23/21 04:16 98 H 02/23/21 04:12 95 H 02/23/21 04:10 98 H 02/23/21 04:07 96 H 02/23/21 04:04 99 H 02/23/21 04:02 100 H 02/23/21 03:58 101 H 02/23/21 03:57 103 H 02/23/21 03:52 107 H 02/23/21 03:48 104 H 02/23/21 03:47 104 H 143/79 02/23/21 03:44 18 02/23/21 03:42 101 H 02/23/21 03:37 103 H 02/23/21 03:32 103 H 02/23/21 03:31 102 H 167/87 02/23/21 03:27 105 H 02/23/21 03:25 104 H 167/87 02/23/21 03:24 108 H 182/87 02/23/21 03:22 102 H 02/23/21 03:18 101 H 182/87 02/23/21 03:17 103 H 02/23/21 03:12 102 H 02/23/21 03:07 99 H 02/23/21 03:02 101 H 02/23/21 02:57 102 H 02/23/21 02:52 105 H 02/23/21 02:47 103 H 172/88 02/23/21 02:45 18 02/23/21 02:44 105 H 169/89 02/23/21 02:42 104 H 02/23/21 02:37 102 H 02/23/21 02:32 102 H 02/23/21 02:27 99 H 02/23/21 02:22 106 H 02/23/21 02:18 100 H 168/92 02/23/21 02:17 103 H 02/23/21 02:12 98 H 02/23/21 02:07 100 H 02/23/21 02:02 102 H 02/23/21 01:57 104 H 02/23/21 01:52 103 H 02/23/21 01:47 100 H 144/95 02/23/21 01:42 97 H 02/23/21 01:37 96 H 02/23/21 01:32 97 H 02/23/21 01:27 106 H 02/23/21 01:26 97 H 02/23/21 01:22 95 H 02/23/21 01:18 97 H 160/89 02/23/21 01:17 100 H 02/23/21 01:12 92 H 02/23/21 01:07 92 H 02/23/21 01:02 96 H 02/23/21 01:01 94 H 02/23/21 00:57 96 H 02/23/21 00:52 91 H 02/23/21 00:48 96 H 153/88 02/23/21 00:47 98 H 02/23/21 00:42 96 H 02/23/21 00:37 100 H 02/23/21 00:32 101 H 02/23/21 00:27 104 H 02/23/21 00:22 97 H 02/23/21 00:17 104 H 144/85 02/23/21 00:12 99 H 02/23/21 00:07 101 H 02/23/21 00:02 102 H 02/22/21 23:57 99 H 02/22/21 23:52 99 H 02/22/21 23:47 104 H 143/80 02/22/21 23:42 102 H 02/22/21 23:37 100 H 02/22/21 23:32 99 H 02/22/21 23:27 101 H 02/22/21 23:22 100 H 02/22/21 23:17 103 H 134/83 02/22/21 23:12 101 H 02/22/21 23:07 105 H 02/22/21 23:02 105 H 02/22/21 22:57 100 H 02/22/21 22:54 104 H 154/91 02/22/21 22:52 102 H 02/22/21 22:48 104 H 174/102 02/22/21 22:47 104 H 02/22/21 22:42 102 H 02/22/21 22:37 102 H 02/22/21 22:32 107 H 02/22/21 22:27 103 H 02/22/21 22:22 101 H 02/22/21 22:17 101 H 147/91 02/22/21 22:12 102 H 02/22/21 22:07 100 H 02/22/21 22:02 102 H 02/22/21 22:00 102 H 167/87 02/22/21 21:57 102 H 02/22/21 21:52 101 H 02/22/21 21:47 100 H 144/90 02/22/21 21:45 104 H 18 02/22/21 21:42 103 H 02/22/21 21:37 97 H 02/22/21 21:32 100 H 02/22/21 21:27 97 H 02/22/21 21:22 96 H 02/22/21 21:17 98 H 138/88 02/22/21 21:12 100 H 02/22/21 21:07 95 H 02/22/21 21:02 95 H 02/22/21 20:57 93 H 02/22/21 20:56 95 H 02/22/21 20:52 93 H 02/22/21 20:47 96 H 136/86 02/22/21 20:42 93 H 02/22/21 20:37 95 H 02/22/21 20:32 93 H 02/22/21 20:27 95 H 02/22/21 20:22 95 H 02/22/21 20:17 94 H 02/22/21 20:12 94 H 02/22/21 20:07 95 H 02/22/21 20:04 93 H 140/78 02/22/21 20:02 95 H 02/22/21 19:57 98 H 02/22/21 19:52 101 H 02/22/21 19:49 99 H 143/81 02/22/21 19:47 100 H 02/22/21 19:42 97 H 02/22/21 19:37 97 H 02/22/21 19:34 96 H 142/82 02/22/21 19:32 98 H 150/85 02/22/21 19:27 105 H 02/22/21 19:22 101 H 02/22/21 19:20 101 H 171/99 02/22/21 19:19 101 H 171/99 02/22/21 19:17 104 H 02/22/21 19:12 105 H 02/22/21 19:07 105 H 02/22/21 19:06 108 H 174/98 02/22/21 19:04 107 H 166/106 02/22/21 19:03 113 H 02/22/21 19:02 109 H 02/22/21 18:57 102 H 02/22/21 18:56 96 H 164/95 02/22/21 18:52 98 H 02/22/21 18:49 90 164/93 02/22/21 18:47 93 H 02/22/21 18:45 97.8 F 92 H 22 173/97 02/22/21 18:42 98 H 173/97 02/22/21 18:37 100 H 02/22/21 18:35 100 H 154/96 02/22/21 18:32 102 H 02/22/21 18:30 97.8 F 94 H 18 154/96 02/22/21 18:27 96 H 02/22/21 18:22 98 H 02/22/21 18:18 100 H 152/84 02/22/21 18:17 102 H 02/22/21 18:12 101 H 02/22/21 18:08 100 H 144/74 02/22/21 18:07 98 H 02/22/21 18:02 101 H 02/22/21 17:57 100 H 02/22/21 17:55 97.8 F 102 H 17 02/22/21 17:52 100 H 136/71 02/22/21 15:59 117 H 02/22/21 15:54 115 H 02/22/21 15:49 117 H 02/22/21 15:48 117 H 167/80 02/22/21 15:44 117 H 02/22/21 15:39 118 H 02/22/21 15:38 115 H 167/81 02/22/21 15:34 120 H 173/68 02/22/21 15:29 117 H 02/22/21 15:24 118 H 02/22/21 15:19 116 H 02/22/21 15:18 117 H 177/93 02/22/21 15:14 117 H 02/22/21 15:09 110 H 02/22/21 15:04 110 H 175/94 02/22/21 14:59 109 H 02/22/21 14:56 109 H 175/98 02/22/21 14:54 110 H 02/22/21 14:49 107 H 178/95 02/22/21 14:44 108 H 02/22/21 14:39 110 H 02/22/21 14:34 116 H 165/78 02/22/21 14:29 109 H 02/22/21 14:24 112 H 02/22/21 14:19 108 H 160/76 02/22/21 14:14 110 H 02/22/21 14:09 106 H 02/22/21 14:06 105 H 02/22/21 14:04 105 H 02/22/21 14:03 106 H 165/74 02/22/21 14:01 105 H 02/22/21 14:00 106 H 18 02/22/21 13:59 105 H 02/22/21 13:54 106 H 02/22/21 13:49 108 H 02/22/21 13:48 108 H 148/69 02/22/21 13:44 105 H 02/22/21 13:39 105 H 02/22/21 13:34 103 H 154/74 02/22/21 13:33 105 H 02/22/21 13:29 107 H 02/22/21 13:28 105 H 136/74 02/22/21 13:24 106 H 02/22/21 13:19 108 H 02/22/21 13:14 108 H 02/22/21 13:09 109 H 02/22/21 13:04 107 H 02/22/21 13:03 107 H 148/75 02/22/21 12:59 109 H 02/22/21 12:57 108 H 02/22/21 12:54 106 H 02/22/21 12:51 107 H 02/22/21 12:49 107 H 02/22/21 12:48 106 H 156/80 02/22/21 12:44 107 H 02/22/21 12:39 109 H 02/22/21 12:38 109 H 156/84 02/22/21 12:35 107 H 156/84 02/22/21 12:34 107 H 02/22/21 12:33 108 H 157/86 02/22/21 12:29 108 H 02/22/21 12:24 109 H 02/22/21 12:19 108 H 02/22/21 12:18 106 H 157/83 02/22/21 12:14 107 H 02/22/21 12:09 105 H 02/22/21 12:07 107 H 156/81 02/22/21 12:04 104 H 02/22/21 12:02 104 H 159/84 02/22/21 11:59 102 H 02/22/21 11:57 102 H 170/90 02/22/21 11:55 98.1 F 102 H 17 182/109 181/106 02/22/21 11:54 104 H 02/22/21 11:51 101 H 181/106 02/22/21 11:49 101 H 02/22/21 11:44 103 H 02/22/21 11:39 102 H 02/22/21 11:34 104 H 02/22/21 11:29 104 H 02/22/21 11:26 103 H 162/92 02/22/21 11:24 105 H 02/22/21 11:19 104 H 02/22/21 11:14 105 H 02/22/21 11:09 104 H 02/22/21 11:04 108 H 02/22/21 10:59 106 H 02/22/21 10:55 103 H 130/70 02/22/21 10:54 103 H 02/22/21 10:49 102 H 02/22/21 10:44 105 H 02/22/21 10:39 105 H 02/22/21 10:34 107 H 02/22/21 10:29 108 H 02/22/21 10:25 106 H 147/80 02/22/21 10:24 108 H 02/22/21 10:19 110 H 02/22/21 10:14 112 H 02/22/21 10:09 117 H 02/22/21 10:07 109 H 136/79 02/22/21 10:04 108 H 02/22/21 09:59 113 H 02/22/21 09:55 113 H 136/79 02/22/21 09:54 111 H 02/22/21 09:49 109 H 02/22/21 09:44 107 H 02/22/21 09:39 113 H 02/22/21 09:34 115 H 02/22/21 09:29 117 H 02/22/21 09:25 113 H 147/81 02/22/21 09:24 113 H 02/22/21 09:19 116 H 02/22/21 09:14 108 H 02/22/21 09:12 110 H 02/22/21 09:09 110 H 02/22/21 09:06 109 H 02/22/21 09:04 110 H 02/22/21 08:59 112 H 02/22/21 08:55 110 H 158/78 02/22/21 08:54 110 H 02/22/21 08:49 107 H 02/22/21 08:46 102 H 147/70 02/22/21 08:44 103 H 02/22/21 08:39 103 H 02/22/21 08:34 107 H 02/22/21 08:29 109 H 02/22/21 08:27 108 H 02/22/21 08:25 109 H 141/91 02/22/21 08:24 107 H 02/22/21 08:19 106 H Pulse Ox 02/23/21 08:12 98 02/23/21 08:07 97 02/23/21 08:02 98 02/23/21 07:57 97 02/23/21 07:55 02/23/21 07:52 98 02/23/21 07:48 02/23/21 07:47 97 02/23/21 07:42 97 02/23/21 07:37 98 02/23/21 07:32 96 02/23/21 07:27 98 02/23/21 07:26 98 02/23/21 07:22 98 02/23/21 07:20 02/23/21 07:18 02/23/21 07:17 98 02/23/21 07:12 98 02/23/21 07:07 97 02/23/21 07:02 97 02/23/21 06:57 97 02/23/21 06:52 98 02/23/21 06:47 97 02/23/21 06:42 98 02/23/21 06:37 98 02/23/21 06:32 97 02/23/21 06:31 02/23/21 06:27 97 02/23/21 06:22 97 02/23/21 06:17 96 02/23/21 06:12 97 02/23/21 06:07 97 02/23/21 06:02 97 02/23/21 05:57 98 02/23/21 05:52 98 02/23/21 05:47 96 02/23/21 05:42 96 02/23/21 05:40 93 02/23/21 05:37 96 02/23/21 05:32 95 02/23/21 05:27 95 02/23/21 05:26 93 02/23/21 05:22 95 02/23/21 05:21 94 02/23/21 05:17 95 02/23/21 05:12 96 02/23/21 05:07 97 02/23/21 05:02 97 02/23/21 04:57 96 02/23/21 04:52 96 02/23/21 04:47 96 02/23/21 04:42 96 02/23/21 04:37 97 02/23/21 04:32 95 02/23/21 04:31 94 02/23/21 04:27 95 02/23/21 04:22 96 02/23/21 04:17 97 02/23/21 04:16 94 02/23/21 04:12 96 02/23/21 04:10 94 02/23/21 04:07 95 02/23/21 04:04 94 02/23/21 04:02 94 02/23/21 03:58 94 02/23/21 03:57 93 02/23/21 03:52 89 02/23/21 03:48 94 02/23/21 03:47 96 02/23/21 03:44 02/23/21 03:42 96 02/23/21 03:37 97 02/23/21 03:32 96 02/23/21 03:31 02/23/21 03:27 97 02/23/21 03:25 02/23/21 03:24 02/23/21 03:22 96 02/23/21 03:18 02/23/21 03:17 97 02/23/21 03:12 96 02/23/21 03:07 97 02/23/21 03:02 96 02/23/21 02:57 97 02/23/21 02:52 97 02/23/21 02:47 97 02/23/21 02:45 02/23/21 02:44 02/23/21 02:42 97 02/23/21 02:37 97 02/23/21 02:32 98 02/23/21 02:27 98 02/23/21 02:22 98 02/23/21 02:18 02/23/21 02:17 98 02/23/21 02:12 97 02/23/21 02:07 97 02/23/21 02:02 97 02/23/21 01:57 98 02/23/21 01:52 97 02/23/21 01:47 98 02/23/21 01:42 96 02/23/21 01:37 96 02/23/21 01:32 97 02/23/21 01:27 97 02/23/21 01:26 93 02/23/21 01:22 96 02/23/21 01:18 02/23/21 01:17 98 02/23/21 01:12 97 02/23/21 01:07 96 02/23/21 01:02 97 02/23/21 01:01 94 02/23/21 00:57 96 02/23/21 00:52 97 02/23/21 00:48 02/23/21 00:47 97 02/23/21 00:42 96 02/23/21 00:37 98 02/23/21 00:32 98 02/23/21 00:27 97 02/23/21 00:22 97 02/23/21 00:17 97 02/23/21 00:12 97 02/23/21 00:07 96 02/23/21 00:02 95 02/22/21 23:57 96 02/22/21 23:52 97 02/22/21 23:47 96 02/22/21 23:42 96 02/22/21 23:37 96 02/22/21 23:32 97 02/22/21 23:27 96 02/22/21 23:22 96 02/22/21 23:17 96 02/22/21 23:12 97 02/22/21 23:07 97 02/22/21 23:02 98 02/22/21 22:57 98 02/22/21 22:54 02/22/21 22:52 98 02/22/21 22:48 02/22/21 22:47 97 02/22/21 22:42 98 02/22/21 22:37 98 02/22/21 22:32 98 02/22/21 22:27 98 02/22/21 22:22 97 02/22/21 22:17 97 02/22/21 22:12 97 02/22/21 22:07 97 02/22/21 22:02 99 02/22/21 22:00 02/22/21 21:57 98 02/22/21 21:52 97 02/22/21 21:47 98 02/22/21 21:45 02/22/21 21:42 98 02/22/21 21:37 98 02/22/21 21:32 97 02/22/21 21:27 96 02/22/21 21:22 97 02/22/21 21:17 97 02/22/21 21:12 98 02/22/21 21:07 95 02/22/21 21:02 96 02/22/21 20:57 96 02/22/21 20:56 94 02/22/21 20:52 96 02/22/21 20:47 96 02/22/21 20:42 96 02/22/21 20:37 95 02/22/21 20:32 95 02/22/21 20:27 95 02/22/21 20:22 95 02/22/21 20:17 95 02/22/21 20:12 96 02/22/21 20:07 96 02/22/21 20:04 02/22/21 20:02 95 02/22/21 19:57 99 02/22/21 19:52 98 02/22/21 19:49 02/22/21 19:47 98 02/22/21 19:42 98 02/22/21 19:37 98 02/22/21 19:34 02/22/21 19:32 98 02/22/21 19:27 97 02/22/21 19:22 98 02/22/21 19:20 02/22/21 19:19 02/22/21 19:17 98 02/22/21 19:12 97 02/22/21 19:07 97 02/22/21 19:06 02/22/21 19:04 02/22/21 19:03 94 02/22/21 19:02 95 02/22/21 18:57 95 02/22/21 18:56 02/22/21 18:52 96 02/22/21 18:49 02/22/21 18:47 95 02/22/21 18:45 02/22/21 18:42 95 02/22/21 18:37 95 02/22/21 18:35 02/22/21 18:32 95 02/22/21 18:30 02/22/21 18:27 95 02/22/21 18:22 96 02/22/21 18:18 02/22/21 18:17 97 02/22/21 18:12 96 02/22/21 18:08 02/22/21 18:07 97 02/22/21 18:02 96 02/22/21 17:57 97 02/22/21 17:55 02/22/21 17:52 98 02/22/21 15:59 96 02/22/21 15:54 96 02/22/21 15:49 96 02/22/21 15:48 02/22/21 15:44 96 02/22/21 15:39 97 02/22/21 15:38 02/22/21 15:34 97 02/22/21 15:29 98 02/22/21 15:24 98 02/22/21 15:19 97 02/22/21 15:18 02/22/21 15:14 98 02/22/21 15:09 98 02/22/21 15:04 97 02/22/21 14:59 97 02/22/21 14:56 02/22/21 14:54 98 02/22/21 14:49 97 02/22/21 14:44 97 02/22/21 14:39 97 02/22/21 14:34 96 02/22/21 14:29 97 02/22/21 14:24 96 02/22/21 14:19 96 02/22/21 14:14 97 02/22/21 14:09 94 02/22/21 14:06 94 02/22/21 14:04 94 02/22/21 14:03 02/22/21 14:01 94 02/22/21 14:00 02/22/21 13:59 95 02/22/21 13:54 95 02/22/21 13:49 96 02/22/21 13:48 94 02/22/21 13:44 95 02/22/21 13:39 94 02/22/21 13:34 96 02/22/21 13:33 92 02/22/21 13:29 97 02/22/21 13:28 02/22/21 13:24 97 02/22/21 13:19 97 02/22/21 13:14 96 02/22/21 13:09 95 02/22/21 13:04 96 02/22/21 13:03 02/22/21 12:59 97 02/22/21 12:57 94 02/22/21 12:54 96 02/22/21 12:51 94 02/22/21 12:49 95 02/22/21 12:48 02/22/21 12:44 96 02/22/21 12:39 97 02/22/21 12:38 02/22/21 12:35 02/22/21 12:34 97 02/22/21 12:33 02/22/21 12:29 98 02/22/21 12:24 98 02/22/21 12:19 98 02/22/21 12:18 02/22/21 12:14 97 02/22/21 12:09 97 02/22/21 12:07 02/22/21 12:04 97 02/22/21 12:02 02/22/21 11:59 98 02/22/21 11:57 02/22/21 11:55 98 02/22/21 11:54 95 02/22/21 11:51 02/22/21 11:49 98 02/22/21 11:44 98 02/22/21 11:39 97 02/22/21 11:34 98 02/22/21 11:29 97 02/22/21 11:26 02/22/21 11:24 98 02/22/21 11:19 98 02/22/21 11:14 97 02/22/21 11:09 97 02/22/21 11:04 97 02/22/21 10:59 98 02/22/21 10:55 02/22/21 10:54 97 02/22/21 10:49 98 02/22/21 10:44 98 02/22/21 10:39 97 02/22/21 10:34 97 02/22/21 10:29 96 02/22/21 10:25 02/22/21 10:24 98 02/22/21 10:19 98 02/22/21 10:14 98 02/22/21 10:09 97 02/22/21 10:07 02/22/21 10:04 96 02/22/21 09:59 98 02/22/21 09:55 02/22/21 09:54 98 02/22/21 09:49 97 02/22/21 09:44 98 02/22/21 09:39 98 02/22/21 09:34 98 02/22/21 09:29 98 02/22/21 09:25 02/22/21 09:24 97 02/22/21 09:19 92 02/22/21 09:14 94 02/22/21 09:12 94 02/22/21 09:09 95 02/22/21 09:06 94 02/22/21 09:04 95 02/22/21 08:59 97 02/22/21 08:55 02/22/21 08:54 97 02/22/21 08:49 96 02/22/21 08:46 02/22/21 08:44 96 02/22/21 08:39 97 02/22/21 08:34 97 02/22/21 08:29 96 02/22/21 08:27 94 02/22/21 08:25 02/22/21 08:24 96 02/22/21 08:19 96 Intake and Output 02/22/21 02/23/21 02/23/21 23:59 07:59 15:59 Intake Total 2040 1697.5 Output Total 240 1000 Balance 1800 697.5 Intake: IV 2040 1697.5 Lactated Ringers 1,000 ml 1000 @ 125 mls/hr IV [facility] Rx#:[id number] MAGNESIUM SULFATE 40GM/ 697.5 1000ML 40 gm In 1,000 ml @ 2 GM/HR 50 mls/hr IV DIRECT [facility] Rx#:[id number] Output: Urine 240 1000 Indwelling Catheter 1000 Other: Total, Output Amount 400 - Exam Cardiovascular: Present: Regular rate Lungs: Present: Clear to auscultation Abdomen: Present: normal appearance, soft, normal bowel sounds. Absent: distention, tenderness, guarding, rigidity Uterus: Present: normal, firm, fundal height below umbilicus. Absent: bogginess, tenderness Extremities: Present: edema. Absent: tenderness Incision: Present: dry, intact - Labs Labs: Abnormal lab results 02/21/21 02/22/21 02/22/21 Range/Units 17:00 08:30 13:50 WBC (4.5-11.0) K/mm3 MCH (28-32) pg Plt Count (140-440) K/mm3 POC Glucose (70-105) mg/dL Magnesium 5.20 H 5.50 H (1.7-2.3) mg/dL Crossmatch See Detail 02/22/21 02/22/21 02/23/21 Range/Units 15:23 18:49 00:24 WBC 14.9 H (4.5-11.0) K/mm3 MCH 27 L (28-32) pg Plt Count 96 L (140-440) K/mm3 POC Glucose (70-105) mg/dL Magnesium 5.20 H 6.20 H (1.7-2.3) mg/dL Crossmatch 02/23/21 Range/Units 06:29 WBC (4.5-11.0) K/mm3 MCH (28-32) pg Plt Count (140-440) K/mm3 POC Glucose 127 H (70-105) mg/dL Magnesium (1.7-2.3) mg/dL Crossmatch
[2021-02-23] MEDS: ALBUTEROL 2.5 MG/3 ML NEBU IH SCH ×3 (09:01→16:59)
[2021-02-23] MEDS: PRENATAL VIT27-FE FUMARATE-FOLIC ACID VIT TAB PO SCH (10:31)
[2021-02-23] MEDS: SIMETHICONE 80 MG CHEW TAB PO PRN ×2 (14:01→18:49)
--- NOTE | 2021-02-23 16:51 | Event Note ---
Date: 02/23/21 pt evaluated and pt comfortable with pain med received and has passed flatus. Denies headache. Nurse called earlier to allow pt to see her baby and same was denied by me until 24hr post mag sulfate due to blood pressure elevations during the night. Urine output >100ml/hr. Peripad dry with scant dark blood. Pt now stable and therefore mag sulfate stopped. Incision well approximated however slightly moist therefore dry towelette placed and pt taught how to keep the wound clean and dry. Will continue labetalol med 300mg bid. All questions encouraged and answered.
--- NOTE | 2021-02-23 21:15 | Post Anesthesia Evaluation ---
- Post Anesthesia Evaluation Patient Participated: Yes Airway Patent: Yes Stable Respiratory Function: Yes Nausea/Vomiting: No Temp > 96.8F: Yes Pain Manageable: Yes Adequeate Hydration: Yes Anesthesia Complications: No Block Receding Appropriately: Yes
[2021-02-24] MEDS: HYDROcodone/ACETAMINOPHEN 5-325 MG TAB PO PRN ×5 (00:08→22:18)
[2021-02-24] MEDS: FERROUS SULFATE 325 MG TAB PO SCH (09:03)
[2021-02-24] MEDS: PRENATAL VIT27-FE FUMARATE-FOLIC ACID VIT TAB PO SCH (09:03)
[2021-02-24] MEDS ORDERED: ALBUTEROL 2.5 MG/3 ML NEBU IH PRN (10:16)
[2021-02-24] MEDS: ALBUTEROL 2.5 MG/3 ML NEBU IH SCH (10:17)
--- NOTE | 2021-02-24 10:51 | Progress Note ---
Assessment and Plan A: /postop day 2 S/P primary LTCS. Preeclampsia with severe features, S/P magnesium sulfate; on Labetalol 300 mg po BID. Obesity. Gestational diabetes. Asthma (asymptomatic). Anemia. P: Continue Labetalol 300 mg po BID. Nurse to recheck blood pressure. Continue iron supplementation. Subjective - Subjective Date of service: 02/24/21 Principal diagnosis: /postop day 2 S/P primary LTCS; severe preeclampsia Interval history: Patient denies headache, visual disturbance, nausea or vomiting, abdominal pain, shortness of breath, chest pain, heavy bleeding, leg pain, or any other problems. Patient reports: appetite normal, voiding normally, pain well controlled, flatus, ambulating normally, no dizzy ambulation, no nauseated : doing well Objective - Vital Signs Latest vital signs: Vital Signs Temp Pulse Pulse Resp Resp BP BP 02/24/21 10:14 94 H 16 02/24/21 08:42 98.8 F 105 H 22 158/97 02/24/21 05:36 94 H 150/79 02/24/21 05:05 20 02/24/21 00:07 98.9 F 98 H 20 141/80 02/23/21 21:21 159/95 02/23/21 21:14 105 H 18 159/95 02/23/21 18:05 97.8 F 98 H 20 156/93 02/23/21 17:12 97 H 02/23/21 17:07 92 H 02/23/21 17:02 94 H 02/23/21 16:57 94 H 02/23/21 16:52 91 H 02/23/21 16:47 97 H 156/85 02/23/21 16:42 97 H 02/23/21 16:37 94 H 02/23/21 16:32 93 H 02/23/21 16:27 97 H 02/23/21 16:23 91 H 02/23/21 16:22 98 H 02/23/21 16:17 88 140/84 02/23/21 16:12 88 02/23/21 16:11 85 02/23/21 16:07 92 H 02/23/21 16:06 85 02/23/21 16:02 85 02/23/21 15:59 84 02/23/21 15:57 92 H 02/23/21 15:52 90 02/23/21 15:47 90 148/82 02/23/21 15:42 96 H 02/23/21 15:37 94 H 02/23/21 15:32 96 H 02/23/21 15:27 94 H 02/23/21 15:22 104 H 02/23/21 15:17 98 H 137/80 02/23/21 15:12 91 H 02/23/21 15:07 96 H 02/23/21 15:02 97 H 02/23/21 14:57 104 H 02/23/21 14:52 102 H 02/23/21 14:47 102 H 137/81 02/23/21 14:42 104 H 02/23/21 14:37 99 H 02/23/21 14:32 100 H 02/23/21 14:27 99 H 02/23/21 14:22 104 H 02/23/21 14:17 102 H 134/76 02/23/21 14:12 103 H 02/23/21 14:07 105 H 02/23/21 14:02 98 H 02/23/21 13:57 99 H 02/23/21 13:52 96 H 02/23/21 13:47 96 H 141/78 02/23/21 13:42 98 H 135/77 02/23/21 13:37 97 H 02/23/21 13:32 97 H 02/23/21 13:27 95 H 02/23/21 13:22 98 H 02/23/21 13:18 98 H 173/109 02/23/21 13:17 98 H 02/23/21 13:12 102 H 02/23/21 13:07 97 H 02/23/21 13:02 98 H 02/23/21 12:57 100 H 02/23/21 12:52 97 H 02/23/21 12:47 100 H 157/90 02/23/21 12:42 99 H 02/23/21 12:37 92 H 147/87 02/23/21 12:32 80 02/23/21 12:30 97.9 F 20 02/23/21 12:27 87 02/23/21 12:22 86 02/23/21 12:19 86 02/23/21 12:18 84 165/87 02/23/21 12:17 85 07/10/21 12:12 85 02/23/21 12:07 86 02/23/21 12:02 100 H 02/23/21 11:57 91 H 02/23/21 11:52 91 H 02/23/21 11:47 88 170/93 02/23/21 11:44 85 02/23/21 11:42 87 02/23/21 11:37 84 02/23/21 11:32 87 02/23/21 11:27 88 02/23/21 11:22 97 H 02/23/21 11:18 91 H 160/88 02/23/21 11:17 94 H 02/23/21 11:12 95 H 02/23/21 11:07 93 H 02/23/21 11:02 95 H 02/23/21 10:57 96 H 02/23/21 10:52 93 H 02/23/21 10:47 99 H 152/89 Pulse Ox 02/24/21 10:14 02/24/21 08:42 97 02/24/21 05:36 96 02/24/21 05:05 02/24/21 00:07 97 02/23/21 21:21 02/23/21 21:14 98 02/23/21 18:05 97 02/23/21 17:12 99 02/23/21 17:07 98 02/23/21 17:02 99 02/23/21 16:57 97 02/23/21 16:52 98 02/23/21 16:47 98 02/23/21 16:42 98 02/23/21 16:37 97 02/23/21 16:32 99 02/23/21 16:27 97 02/23/21 16:23 94 02/23/21 16:22 96 02/23/21 16:17 97 02/23/21 16:12 97 02/23/21 16:11 94 02/23/21 16:07 98 02/23/21 16:06 94 02/23/21 16:02 97 02/23/21 15:59 94 02/23/21 15:57 97 02/23/21 15:52 97 02/23/21 15:47 96 02/23/21 15:42 97 02/23/21 15:37 97 02/23/21 15:32 98 02/23/21 15:27 98 02/23/21 15:22 99 02/23/21 15:17 99 02/23/21 15:12 98 02/23/21 15:07 97 02/23/21 15:02 97 02/23/21 14:57 99 02/23/21 14:52 98 02/23/21 14:47 97 02/23/21 14:42 98 02/23/21 14:37 98 02/23/21 14:32 97 02/23/21 14:27 98 02/23/21 14:22 98 02/23/21 14:17 98 02/23/21 14:12 98 02/23/21 14:07 97 02/23/21 14:02 97 02/23/21 13:57 98 02/23/21 13:52 98 02/23/21 13:47 98 02/23/21 13:42 97 02/23/21 13:37 97 02/23/21 13:32 100 02/23/21 13:27 97 02/23/21 13:22 98 02/23/21 13:18 02/23/21 13:17 98 02/23/21 13:12 97 02/23/21 13:07 98 02/23/21 13:02 97 02/23/21 12:57 98 02/23/21 12:52 97 02/23/21 12:47 98 02/23/21 12:42 98 02/23/21 12:37 99 02/23/21 12:32 98 02/23/21 12:30 98 02/23/21 12:27 97 02/23/21 12:22 98 02/23/21 12:19 92 02/23/21 12:18 02/23/21 12:17 98 02/23/21 12:12 98 02/23/21 12:07 98 02/23/21 12:02 98 02/23/21 11:57 99 02/23/21 11:52 96 02/23/21 11:47 97 02/23/21 11:44 92 02/23/21 11:42 96 02/23/21 11:37 96 02/23/21 11:32 97 02/23/21 11:27 96 02/23/21 11:22 98 02/23/21 11:18 02/23/21 11:17 97 02/23/21 11:12 98 02/23/21 11:07 98 02/23/21 11:02 98 02/23/21 10:57 98 02/23/21 10:52 97 02/23/21 10:47 99 Intake and Output 02/23/21 02/24/21 02/24/21 23:59 07:59 15:59 Intake Total 670 240 240 Output Total 1350 600 Balance -680 -360 240 Intake: IV 430 MAGNESIUM SULFATE 40GM/ 430 1000ML 40 gm In 1,000 ml @ 2 GM/HR 50 mls/hr IV DIRECT ONIEL Rx#:[id number] Oral 240 240 240 Output: Urine 1350 600 Indwelling Catheter 600 Uretheral (Ferraro) 350 Void 400 600 Other: Total, Intake Amount 240 120 240 Total, Output Amount 400 300 # Voids Void 1 1 1 - Exam Cardiovascular: Present: Regular rate Lungs: Present: Clear to auscultation Abdomen: Present: normal appearance, soft, normal bowel sounds, rigidity. Absent: distention, tenderness, guarding Uterus: Present: normal, firm, fundal height below umbilicus. Absent: bogginess, tenderness Extremities: Present: edema. Absent: tenderness Incision: Present: dry, intact - Labs Labs: Abnormal lab results 02/21/21 02/23/21 Range/Units 17:00 11:57 Magnesium 7.30 H (1.7-2.3) mg/dL Crossmatch See Detail
[2021-02-24] MEDS: SIMETHICONE 80 MG CHEW TAB PO PRN (11:39)
--- NOTE | 2021-02-24 14:37 | Event Note ---
Date: 02/24/21 MH consult ordered for positive depression screen.
[2021-02-24] MEDS: hydrALAZINE 20 MG/1 ML INJ IV PRN (22:22)
[2021-02-25] MEDS: HYDROcodone/ACETAMINOPHEN 5-325 MG TAB PO PRN ×2 (05:13→14:50)
[2021-02-25 08:30] LABS: Basophils % (Auto) 0.2 % (0.0-1.8); Eosinophils # (Auto) 0.2 K/mm3 (0.0-0.4); Eosinophils % (Auto) 1.8 % (0.0-4.3); Hematocrit 29.2 % (30.3-42.9); Hemoglobin 9.6 gm/dl (10.1-14.3); Lymphocytes # (Auto) 3.7 K/mm3 (1.2-5.4); Lymphocytes % (Auto) 31.2 % (13.4-35.0); Mean Corpuscular HGB Conc 33 % (30-34); Mean Corpuscular Volume 82 fl (79-97); Monocytes # (Auto) 0.6 K/mm3 (0.0-0.8); Monocytes % (Auto) 4.7 % (0.0-7.3); Platelet Count 219 K/mm3 (140-440); Red Blood Count 3.57 M/mm3 (3.65-5.03); Red Cell Distribution Width 15.9 % (13.2-15.2)
--- NOTE | 2021-02-25 09:01 | Progress Note ---
Assessment and Plan pt is doing well. possible d/c today. - Patient Problems (1) Toxemia in Current Visit: Yes Status: Acute (2) Obesity (BMI 30-39.9) Current Visit: Yes Status: Acute (3) Asthma Current Visit: Yes Status: Acute (4) Herniated intervertebral disc of lumbar spine Current Visit: Yes Status: Chronic Subjective - Subjective Date of service: 02/25/21 Principal diagnosis: /postop day 3 S/P primary LTCS; severe preeclampsia Interval history: Patient is a 25-year-old from [place] female primigravida last menstrual period 06/16/2020 EDC [phone]. She is 32 weeks . She does have several problems she is obese she has asthma controlled on albuterol her blood pressures have been elevated during this she has had a 24-hour urine was 83mg she has [facility] she has gestational diabetes controlled with diet only she has a history of herniated disc in her back being treated by orthopedic doctors. She is admitted today because of elevated blood pressure. At the office today her blood pressure was 185/106. She has a history of taking labetalol 200 mg p.o. twice daily daily at the office her blood type was A+ antibody screen was negative. Her Pap smear is nonimmune records her rubella was immune VDRL was nonreactive hepatitis B was negative HIV test was negative platelet count was 329,000 HSV 2 was negative gonorrhea and Chlamydia tests were negative trichomonas test was negative MSAFP was negative she had ultrasound at 6.4 weeks her hematocrit on 01/05/2021 was 36.4% . Her VDRL on 05/08/2021 was nonreactive HIV test on 01/05/2021 was also negative. Patient is several different medications during the . Family medical history shows a maternal grandmother had type 2 diabetes he has grandmother maternal aunt that had breast cancer. Past medical history also shows LGSIL on Pap smear she had a Nexplanon removed on 10/22/2016 she had a Nexplanon inserted in 2012. Menarche was [id number]. Social history shows shows that the patient is single and her weight is 271 pounds. History patient Steroids for the lung maturity this week before today. Patient is admitted for toxemia of possible induction of labor. She will be treated with magnesium sulfate. And will treat her with asthma which is a problem with respiratory therapy. Patient reports: appetite normal, voiding normally, pain well controlled, ambulating normally [place]: doing well Objective - Vital Signs Latest vital signs: Vital Signs Temp Pulse Pulse Resp Resp BP BP 02/25/21 08:36 98.1 F 20 173/87 02/25/21 05:55 98.8 F 98 H 18 150/79 02/25/21 00:32 99.0 F 103 H 18 116/58 02/24/21 22:22 161/82 02/24/21 22:19 99 H 161/82 02/24/21 20:39 98.4 F 99 H 18 161/82 02/24/21 16:49 98.7 F 88 20 134/73 02/24/21 11:03 95 H 124/71 02/24/21 10:14 94 H 16 Pulse Ox 02/25/21 08:36 02/25/21 05:55 98 02/25/21 00:32 99 02/24/21 22:22 02/24/21 22:19 02/24/21 20:39 99 02/24/21 16:49 96 02/24/21 11:03 02/24/21 10:14 Intake and Output 02/24/21 02/25/21 02/25/21 23:59 07:59 15:59 Intake Total 840 420 Balance 840 420 Intake: Oral 480 Intake, Free Water 360 420 Other: Total, Intake Amount 480 # Voids Void 3 2 - Exam Abdomen: Present: normal appearance, soft Extremities: Present: normal Incision: Present: normal, dry, intact - Labs Labs: Abnormal lab results 02/25/21 Range/Units 08:09 WBC 11.9 H (4.5-11.0) K/mm3 RBC 3.57 L (3.65-5.03) M/mm3 Hgb 9.6 L (10.1-14.3) gm/dl Hct 29.2 L (30.3-42.9) % MCH 27 L (28-32) pg RDW 15.9 H (13.2-15.2) %
[2021-02-25] MEDS: FERROUS SULFATE 325 MG TAB PO SCH (10:14)
[2021-02-25] MEDS: PRENATAL VIT27-FE FUMARATE-FOLIC ACID VIT TAB PO SCH (10:14)
--- NOTE | 2021-02-25 13:07 | Consultation ---
History of Present Illness - Reason for Consult Consult date: 02/25/21 Reason for consult: Depression - Chief Complaint Chief complaint: elevated blood pressure. - History of Present Psychiatric Illness Per Note: Patient is a 25-year-old from [place] female primigravida last menstrual period 06/16/2020 EDC [phone]. She is 32 weeks . She does have several problems she is obese she has asthma controlled on albuterol her blood pressures have been elevated during this she has had a 24-hour urine was 83mg she has [facility] she has gestational diabetes controlled with diet only she has a history of herniated disc in her back being treated by orthopedic doctors. She is admitted today because of elevated blood pressure. At the office today her blood pressure was 185/106. She has a history of taking labetalol 200 mg p.o. twice daily daily at the office her blood type was A+ antibody screen was negative. Her Pap smear is nonimmune records her rubella was immune VDRL was nonreactive hepatitis B was negative HIV test was negative platelet count was 329,000 HSV 2 was negative gonorrhea and Chlamydia tests were negative trichomonas test was ne gative MSAFP was negative she had ultrasound at 6.4 weeks her hematocrit on 01/05/2021 was 36.4% . Her VDRL on 05/08/2021 was nonreactive HIV test on 01/05/2021 was also negative. Patient is several different medications during the . Cathy Clement is a 25 year old female with a history of depression. The patient states that she has never seen a psychiatrist but was place on Citalopram by her PCP. In my interview with the patient, she states she feels anxious and sad because is unable to take her baby home with her. The patient denies being depressed and states she does not want to be placed on psychotropic medication. She denies suicidal/homicidal and denies hallucinations. PAST PSYCHIATRIC HISTORY: Diagnoses: Depression Suicide attempts or Self-harm behavior: Denies Prior psychiatric hospitalizations: Denies Substance Abuse history:Denies Previous psychiatric medications tried: Citalopram Outpatient treatment: Unknown PAST MEDICAL HISTORY: None reported or document Family Psychiatric History: None reported or documented SOCIAL HISTORY Marital Status: Living Arrangements: Lives with spouse Employment Status:Unemployed Access to guns/weapons: Denies Education: some college History of Abuse: Denies Legal History: Denies REVIEW OF SYSTEMS Constitutional: Negative for weight loss ENT: Negative for stridor Respiratory: Negative for cough or hemoptysis All other systems reviewed and are negative MENTAL STATUS EXAMINATION General Appearance and Behavior: Age appropriate, wearing appropriate clothes, cooperative, polite with questioning, fair eye contact, calm Cooperation: cooperative Psychomotor Behavior: Psychomotor normal Mood: "Okay" Affect and affective range: congruent with stated mood Thought Process: goal directed Thought Content: Not SI Speech: Normal volume, Regular rate and rhythm Suicidal Ideation: Denies Homicidal Ideation: Denies Hallucination: Denies Delusions: None elicited Impulse Control: Intact Insight and Judgment: Limited Memory: Intact Attention: attentive, engaging Orientation: Alert and oriented Diagnosis: Unspecified Mood Disorder- F39 Treatment Plan PSYCHOTHERAPY: Supportive psychotherapy provided MEDICAL: Per primary team DELIRIUM PRECAUTIONS: Please re-orient patient frequently, keep lights on during the day, and minimize benzodiazepines and opiates as these medications could worsen patient's confusion. 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 Patient to follow up with outpatient psychiatric. Please contact with any questions and/or concerns. Case staffed with Dr. Felton Thank you for the consult. Medications and Allergies Allergies Allergy/AdvReac Type Severity Reaction Status Date / Time No Known Allergies Allergy Verified 02/19/21 17:49 Home Medications Medication Instructions Recorded Confirmed Last Taken Type Omeprazole 20 mg PO DAILY 02/21/21 02/21/21 02/20/21 History Vit-Fe Fumar-FA [ 1 tab PO QDAY 02/21/21 02/21/21 02/20/21 History Vitamin] labetaloL [Labetalol 200mg TAB] 200 mg PO BID 02/21/21 02/21/21 02/21/21 History Active Meds: Active Medications Hydrocodone Bitart/Acetaminophen (Hydrocodone/Acetaminophen 5-325 Mg Tab) 2 each PO Q6H PRN PRN Reason: Pain, Moderate (4-6) Last Admin: 02/25/21 05:13 Dose: 2 each Documented by: Albuterol (Albuterol 2.5 Mg/3 Ml Nebu) 2.5 mg IH Q4H PRN PRN Reason: Shortness Of Breath Ferrous Sulfate (Ferrous Sulfate 325 Mg Tab) 325 mg PO QDAY ONIEL Last Admin: 02/25/21 10:14 Dose: 325 mg Documented by: Hydralazine HCl (Hydralazine 20 Mg/1 Ml Inj) 10 mg IV Q30MIN PRN PRN Reason: Blood Pressure Last Admin: 02/24/21 22:22 Dose: 10 mg Documented by: Hydrocortisone Acetate (Hydrocortisone 25 Mg Rectal Supp) 25 mg VT BID PRN PRN Reason: Hemorrhoids Magnesium Sulfate (Magnesium Sulfate 40gm/1000ml) 40 gm in 1,000 mls @ 50 mls/hr IV DIRECT ONIEL Last Infusion: 02/23/21 16:33 Dose: 0 gm/hr, 0 mls/hr Documented by: Lactated Ringer's (Lactated Ringers) 1,000 mls @ 125 mls/hr IV DIRECT ONIEL Last Admin: 02/23/21 07:56 Dose: 75 mls/hr Documented by: Oxytocin/Sodium Chloride (Pitocin/Ns 30 Unit/500ml) 30 units in 500 mls @ 2 mls/hr IV TITR ONIEL; Protocol Oxytocin/Sodium Chloride (Pitocin/Ns 30 Unit/500ml) 30 units in 500 mls @ 40 mls/hr IV TITR ONIEL; Protocol Labetalol HCl (Labetalol 200 Mg Tab) 200 mg PO BID [facility] Last Admin: 02/25/21 10:13 Dose: 200 mg Documented by: Labetalol HCl (Labetalol 100 Mg Tab) 100 mg PO BID [facility] Last Admin: 02/25/21 10:13 Dose: 100 mg Documented by: Morphine Sulfate (Morphine 4 Mg/1 Ml Inj) 4 mg IV Q4H PRN PRN Reason: Pain , Severe (7-10) Last Admin: 02/22/21 10:08 Dose: 4 mg Documented by: Multi-Ingredient Ointment (Lanolin/Zinc/Dimethicone (Lansinoh) 7 Gm) 1 applic TP PRN PRN PRN Reason: dryness/cracking Multivitamins/Iron/Calcium ( Hkd87-Ls Fumarate-Folic Acid Vit Tab) 1 each PO QDAY [facility] Last Admin: 02/25/21 10:14 Dose: 1 each Documented by: Naloxone HCl (Naloxone 0.4 Mg/1 Ml Inj) 0.1 mg IV Q2MIN PRN PRN Reason: Res Rate </= 8 or 02 SAT < 92% Ondansetron HCl (Ondansetron 4 Mg/2 Ml Inj) 4 mg IV Q8H PRN PRN Reason: Nausea And Vomiting Simethicone (Simethicone 80 Mg Chew Tab) 80 mg PO Q6H PRN PRN Reason: Gas pain Last Admin: 02/24/21 11:39 Dose: 80 mg Documented by: Witbret Marli/Glycerin (Witch Marli/ Glycerin Pad) 1 each TP PRN PRN PRN Reason: Hemorrhoids/cleansing/soothing Mental Status Exam - Vital signs Last Vital Signs Temp 97.7 F 02/25/21 11:43 Pulse 95 H 02/25/21 11:43 Resp 18 02/25/21 11:43 BP 152/84 02/25/21 11:43 Pulse Ox 99 02/25/21 11:43 Results Result Diagrams: 02/25/21 08:09 02/21/21 17:00 Abnormal lab results 02/25/21 Range/Units 08:09 WBC 11.9 H (4.5-11.0) K/mm3 RBC 3.57 L (3.65-5.03) M/mm3 Hgb 9.6 L (10.1-14.3) gm/dl Hct 29.2 L (30.3-42.9) % MCH 27 L (28-32) pg RDW 15.9 H (13.2-15.2) % All other labs normal.
--- NOTE | 2021-02-25 16:07 | Discharge Summary ---
Providers - Providers Date of Admission: 02/21/21 16:51 Date of discharge: 02/25/21 Attending physician: FRANNY FLOOD MD 02/22/21 05:21 Consult to Physician [CONS] Routine Comment: Consulting Provider: FRANNY FLOOD Physician Instructions: NICU consult Reason For Exam: premature delivery 02/24/21 14:32 Consult to Mental Health [CONS] Routine Reason For Exam: Positive depression screening results Primary care physician: FRANNY FLOOD MD Hospitalization Reason for admission: induction of labor, other (severe toxemia) Delivery: Procedure: section, primary low transverse Procedure details: see op report. Incision: normal Other procedures: none complications: none Discharge diagnosis: other (severe toxemia, anemia), delivery baby: female Hospital course: benign Condition at discharge: Good Disposition: DC-01 TO HOME OR SELFCARE - Discharge Diagnoses (1) Toxemia in Status: Acute (2) Obesity (BMI 30-39.9) Status: Acute (3) Asthma Status: Acute (4) Herniated intervertebral disc of lumbar spine Status: Chronic Plan - Discharge Medications Prescriptions: Ferrous Sulfate [Feosol 325 MG tab] 325 mg PO QDAY #100 tablet HYDROcodone/APAP 5-325 [[place] 5-325 mg TAB] 2 each PO Q6H PRN 7 Days #25 tablet PRN Reason: Pain, Moderate (4-6) - Provider Discharge Summary Activity: routine, no sex for 6 weeks, no strenuous exercise Diet: routine Instructions: routine Additional instructions: [] Smoking cessation referral if applicable(refer to patient education folder for contact #) [] Refer to [facility] Booklet Call your doctor immediately for: * Fever > 100.5 * Heavy vaginal bleeding ( >1 pad per hour) * Severe persistent headache * Shortness of breath * Reddened, hot, painful area to leg or breast * Drainage or odor from incision. * Keep incision clean and dry at all times and follow doctor's instructions regarding bathing/showering - Follow up plan
[2021-02-25 17:11] VITALS: BP 149/80
== END 2021-02-25 17:30 | disposition home or self-care (01) | DRG 787 ==
LOC: TRG 15:42 → LD 16:51 → OBSVTOIN 16:51 → OB 02-23 17:39
PROC: 10D00Z1 Extraction of Products of Conception, Low, Open Approach (ICD-10-PCS; principal; 2021-02-22)
DX: O14.14 Severe pre-eclampsia complicating childbirth (principal); D62 Acute posthemorrhagic anemia; O60.14X0 Preterm labor third trimester with preterm delivery third trimester, not applicable or unspecified; O24.420 Gestational diabetes mellitus in childbirth, diet controlled; Z20.822 Contact with and (suspected) exposure to COVID-19; Z3A.32 32 weeks gestation of pregnancy; Z37.0 Single live birth; O99.52 Diseases of the respiratory system complicating childbirth; O99.214 Obesity complicating childbirth; J45.909 Unspecified asthma, uncomplicated; M51.26 Other intervertebral disc displacement, lumbar region; O99.892 Other specified diseases and conditions complicating childbirth; O90.81 Anemia of the puerperium; R03.0 Elevated blood-pressure reading, without diagnosis of hypertension; K21.9 Gastro-esophageal reflux disease without esophagitis; O99.62 Diseases of the digestive system complicating childbirth; O99.344 Other mental disorders complicating childbirth; F39 Unspecified mood [affective] disorder; Z83.3 Family history of diabetes mellitus
CPT/HCPCS: 36415; 59025; 76819; 81001; 82565; 82962; 83615; 83735; 84450; 84460; 84550; 85014; 85018; 85025; 85027; 86850; 86900; 86901; 86920; 88307; 94640; 96372; 99211; G0378; G0463; J0360; J0702; J2270; J2765; J3475; J7120; U0003